=== PATIENT | female | born 1955 | race Two or more races ===

== ENCOUNTER → 2018-12-06 | Outpatient (CLI) | payer OTHER | END | disposition home or self-care (01) | LOC: SONOGRAMA 08:04 | DX: E04.1 Nontoxic single thyroid nodule (principal) ==

== ENCOUNTER 2019-06-23 07:17 | Outpatient (CLI) | payer OTHER | END 2019-06-23 07:19 | disposition home or self-care (01) | LOC: SONOGRAMA 07:17 | DX: E04.1 Nontoxic single thyroid nodule (principal) ==

== ENCOUNTER 2019-10-27 08:39 | Outpatient (CLI) | payer OTHER | END 2019-10-27 08:48 | disposition home or self-care (01) | LOC: SONOGRAMA 08:39 | DX: E04.1 Nontoxic single thyroid nodule (principal) ==

== ENCOUNTER 2020-05-21 07:54 | Outpatient (CLI) | payer OTHER | END 2020-05-21 08:01 | disposition home or self-care (01) | LOC: SONOGRAMA 07:54 | PROVIDERS: ATTEND Pathology Anatomic Pathology & Clinical Pathology | DX: D34 Benign neoplasm of thyroid gland (principal); E04.1 Nontoxic single thyroid nodule; E04.8 Other specified nontoxic goiter ==

== ENCOUNTER 2021-03-08 13:34 | Outpatient (CLI) | payer OTHER | END 2021-03-08 13:35 | disposition home or self-care (01) | LOC: SONOGRAMA 13:34 | PROVIDERS: ATTEND Specialist | DX: E04.2 Nontoxic multinodular goiter (principal); E04.1 Nontoxic single thyroid nodule ==